=== PATIENT | male | born 1960 | race Caucasian/White ===

== ENCOUNTER → 2017-05-02 | Outpatient (CLI) | payer OTHER | END | disposition home or self-care (01) | LOC: CFH 11:26 | PROVIDERS: ATTEND Family Medicine | DX: M50.33 Other cervical disc degeneration, cervicothoracic region (principal); M48.02 Spinal stenosis, cervical region; M47.893 Other spondylosis, cervicothoracic region; M43.12 Spondylolisthesis, cervical region; G89.29 Other chronic pain | CPT/HCPCS: 72050 ==